=== PATIENT | female | born 1935 | race Caucasian/White ===

== ENCOUNTER → 2019-09-10 | Emergency (ER) | payer OTHER ==
[~2019-09-10] VITALS: Ht 154.9 cm; Wt 68.0 kg
[~2019-09-10] MED LIST: METFORMIN HCL500 M3 PO; SYNTHROID150 MCG PO; ZESTRIL40 M1 PO
== END | disposition designated cancer center or children's hospital (05) ==
LOC: ER 10:48
DX: H05.232 Hemorrhage of left orbit (principal)